=== PATIENT | male | born 1990 | race African-American/Black ===

== ENCOUNTER 2019-12-14 07:20 | Emergency (ER) | payer OTHER ==
[~2019-12-14] VITALS: Ht 167.6 cm; Wt 56.5 kg
--- NOTE | 2019-12-14 08:28 | NUR ---
PT GOING TO RAD
[2019-12-14 09:45] VITALS: BP 128/84
--- NOTE | 2019-12-14 09:50 | NUR ---
REPORT RECEIVED FROM SANTINO SAUCEDA, THIS RN ASSUMING CARE. PT RESTING ON GURNEY, A&O, RESPS EVEN AND UNLABORED. NADN. AWAITING RAPID STREP RESULTS AND DISPO. PT DENIES ANY NEEDS.
--- NOTE | 2019-12-14 10:25 | NUR ---
PT GIVEN DC INSTRUCTIONS, PT EDUCATED REGARDING SELF ISOLATION. PT IS A&O, RESPS EVEN AND UNLABORED. PT AMBULATORY TO DC DESK WITH STEADY GAIT. OSCAR.
== END 2019-12-14 10:26 | disposition home or self-care (01) ==
LOC: ED 07:49
DX: J02.8 Acute pharyngitis due to other specified organisms (principal); Z20.828 Contact with and (suspected) exposure to other viral communicable diseases; B97.89 Other viral agents as the cause of diseases classified elsewhere; R05 Cough
CPT/HCPCS: 36415; 71045; 87081; 87635; 87880; 99284